=== PATIENT | male | born 1965 | race Caucasian/White ===

== ENCOUNTER 2017-05-13 11:10 | Outpatient (CLI) | payer OTHER | END 2017-05-13 23:59 | disposition home or self-care (01) | LOC: WOU 11:10 | PROVIDERS: ATTEND Surgery | DX: S61.412D Laceration without foreign body of left hand, subsequent encounter (principal); X58.XXXD Exposure to other specified factors, subsequent encounter; Y92.89 Other specified places as the place of occurrence of the external cause; M65.352 Trigger finger, left little finger; M25.542 Pain in joints of left hand; M25.541 Pain in joints of right hand | CPT/HCPCS: 73130-TC; G0463 ==

== ENCOUNTER 2017-05-20 11:29 | Outpatient (CLI) | payer OTHER | END 2017-05-20 23:59 | disposition home or self-care (01) | LOC: WOU 11:29 | PROVIDERS: ATTEND Surgery | DX: M65.352 Trigger finger, left little finger (principal); M79.642 Pain in left hand; M79.641 Pain in right hand; S61.411S Laceration without foreign body of right hand, sequela; X58.XXXS Exposure to other specified factors, sequela | CPT/HCPCS: G0463 ==